=== PATIENT | male | born 1940 | race Hispanic/Latino ===

== ENCOUNTER 2017-05-09 14:16 | Outpatient (CLI) | payer MEDICARE ==
--- NOTE | 2017-05-09 15:25 | XRay Report ---
Right knee: Pain. Mild periarticular spurring is noted involving lateral joint compartment. Both medial and lateral compartments of do appear slightly narrowed worse on the lateral side. The articular margins are smooth. The joint is aligned. Subchondral cyst noted in the anterior medial femoral condyle. The bones are well-mineralized. No swelling and no effusion appreciated. Impression: Degenerative changes predominantly in the lateral compartment.
== END 2017-05-09 14:17 | disposition home or self-care (01) ==
LOC: SPVIMAG 14:16
PROVIDERS: ATTEND Orthopaedic Surgery Sports Medicine
DX: M17.11 Unilateral primary osteoarthritis, right knee (principal); M25.861 Other specified joint disorders, right knee

== ENCOUNTER 2017-07-29 12:39 | Outpatient (CLI) | payer MEDICARE ==
--- NOTE | 2017-07-29 15:11 | XRay Report ---
XRAY RIGHT KNEE 4 THREE VIEWS: 07/29/17 CLINICAL: Right knee pain. COMPARISON: 05/09/17 FINDINGS: A total knee replacement has been performed since the last exam. Normal appearance of the prosthesis. Mild osteopenia.No joint effusion.Mild anterior subcutaneous soft tissue edema. Vascular calcifications. IMPRESSION: Status post total knee replacement with mild soft tissue edema.
== END 2017-07-29 12:40 | disposition home or self-care (01) ==
LOC: SPVIMAG 12:39
PROVIDERS: ATTEND Orthopaedic Surgery Sports Medicine
DX: M85.861 Other specified disorders of bone density and structure, right lower leg (principal); M25.861 Other specified joint disorders, right knee; Z96.651 Presence of right artificial knee joint